=== PATIENT | male | born 1995 | race Caucasian/White ===

== ENCOUNTER → 2024-01-31 | Outpatient (CLI) | payer BC ==
--- NOTE | 2024-01-31 13:33 | US ---
EXAMINATION TYPE: US scrotum with doppler. Grayscale and color Doppler Duplex imaging performed of tameka lund scrotum. DATE OF EXAM: 01/31/2024 COMPARISON: NONE CLINICAL INDICATION: Male, 29 years old with history of N50.819 TESTICULAR PAIN, UNSPECIFIED; No inju ry. Bilateral teste pain that comes and goes EXAM MEASUREMENTS: TESTICLES: Right Testicle: 5.0 x 4.1 x 2.7 cm Left Testicle: 5.0 x 3.8 x 2.5 cm EPIDIDYMIS HEAD: Right Epididymis: 0.9 x 0.8 x 0.8 cm Left Epididymis: 1.2 x 1.0 x 0.8 cm Doppler performed to assess for testicular vascularity; good bilateral color flow and waveforms are s een. There is no evidence of testicular torsion. Presence of hydroceles: no Presence of varicoceles: no IMPRESSION: No discrete abnormality to account for the patient's symptoms. Correlate clinically.
== END | disposition home or self-care (01) ==
LOC: RADUSWWP 12:51
PROVIDERS: ATTEND Pediatrics
DX: N50.811 Right testicular pain (principal); N50.812 Left testicular pain
CPT/HCPCS: 76870; 93975